=== PATIENT | female | born 1980 | race Two or more races ===

== ENCOUNTER 2021-07-22 20:41 | Emergency (ER) | payer OTHER ==
[~2021-07-22] VITALS: Ht 154.9 cm; Wt 87.1 kg
[2021-07-22] MEDS ORDERED: CLONOPIN (21:46)
[2021-07-22] MEDS ORDERED: [UNRECOGNIZED DRUG - OTHER] (21:46)
[2021-07-22] MEDS ORDERED: [UNRECOGNIZED DRUG - OTHER] (21:47)
== END 2021-07-23 00:06 | disposition home or self-care (01) ==
LOC: ER 20:41
DX: N93.9 Abnormal uterine and vaginal bleeding, unspecified (principal); R42 Dizziness and giddiness

== ENCOUNTER 2021-08-10 07:00 | Inpatient (IN) | payer OTHER ==
[~2021-08-10] VITALS: Ht 154.9 cm; Wt 86.6 kg
[~2021-08-10 07:00] MED LIST: CLONOPIN; [UNRECOGNIZED DRUG - OTHER]; [UNRECOGNIZED DRUG - OTHER]
[2021-08-10] MEDS ORDERED: SEROQUEL50 MG (09:27)
[2021-08-12] MEDS ORDERED: CLONAZEPAM1 M1 (15:13)
[2021-08-12] MEDS ORDERED: VENLAFAXINE HC150 MG (15:13)
[2021-08-12] MEDS ORDERED: SYEDA 28 TABLE1 EACH (15:20)
[2021-08-12] MEDS ORDERED: VENLAFAXINE H37.5 M1 (15:20)
[2021-08-14] MEDS ORDERED: IBU800 MG PO (09:29)
[2021-08-14] MEDS ORDERED: COLACE100 MG PO (09:29)
[2021-08-14] MEDS ORDERED: PERCOCET 5-3251 EACH PO (09:29)
[2021-08-14] MEDS ORDERED: SIMETHICONE80 MG PO (09:29)
== END 2021-08-14 10:11 | disposition home or self-care (01) | DRG 743 ==
LOC: O/R 08-12 06:12 → SURH 08-12 07:00 → OB/GYN 08-13 17:15
PROVIDERS: ADMIT Student in an Organized Health Care Education/Training Program; ATTEND Student in an Organized Health Care Education/Training Program
PROC: 0UT74ZZ Resection of Bilateral Fallopian Tubes, Percutaneous Endoscopic Approach (ICD-10-PCS; 2021-08-12)
PROC: 0TJB8ZZ Inspection of Bladder, Via Natural or Artificial Opening Endoscopic (ICD-10-PCS; 2021-08-12)
PROC: 0UT94ZZ Resection of Uterus, Percutaneous Endoscopic Approach (ICD-10-PCS; principal; 2021-08-12 07:00)
DX: N72 Inflammatory disease of cervix uteri (principal); N84.0 Polyp of corpus uteri; D50.0 Iron deficiency anemia secondary to blood loss (chronic); N92.0 Excessive and frequent menstruation with regular cycle